=== PATIENT | male | born 1935 | race Caucasian/White ===

== ENCOUNTER 2016-12-05 12:05 | Day surgery (SDC) | payer MEDICARE, OTHER ==
[~2016-12-05] VITALS: Ht 182.9 cm; Wt 75.0 kg
--- NOTE | 2016-12-05 08:37 | PCM.HPANE ---
Patient Data Surgeon Admitting Provider: Attending Provider:Noman Samson MD Primary Care Physician:Gulshan Granger MD Other Provider:Peggy Pereiraingham Anesthesia Reason for Visit Colon Polyp Ht/WT & BMI Body Mass Index Allergies Coded Allergies: Milk Containing Products (Unverified Allergy, Unknown, 11/06/13) aspirin (Verified Allergy, Unknown, AGITATION, ANXIETY, 11/06/13) morphine (Verified Allergy, Unknown, "Winds him up", 07/27/15) Past Anesthesia History Anesthesia History: Denies:: Abnormal Airway, Anesthesia Reactions, Difficult Intubation, Fam Anesthesia Reaction, Fam Malignant Hypertherm, Malignant Hyperthermia Diabetes History Hx Diabetes?: No MRSA MRSA: No Medications Reported Medications Cyanocobalamin/Folic Acid (Vitamin X29-Njfwk Acid Tablet)1 Each Tablet1 Each PO DAILY 07/27/15 Omeprazole Magnesium (Prilosec Otc)20 Mg Tablet.dr20 Mg PO DAILY #1 PKG Ref 0 07/27/15 Hyoscyamine ER 0.375 Mg Tablet0.375 Mg PO BID 07/27/15 Hydrocodone-Acetaminophen 7.5-325 mg 1 Each Tablet1-2 Tablet PO Q6H PRN For Pain Ref 0 07/27/15 Gabapentin 600 Mg [id number] Mg PO 4-5x day Ref 0 07/27/15 Finasteride 5 Mg Tablet5 Mg PO 3X WEEKLY MO, WE, FR 30 Days Ref 0 07/27/15 Multivitamin (Multi Vitamin Daily)1 Each Tablet1 Each PO DAILY 30 Days Ref 0 07/27/15 Discontinued Reported Medications Hydrochlorothiazide 25 Mg [id number] Mg PO DAILY #90 09/03/15 History History of ENT Problems?: Yes HEENT History: Positive for:: Hearing Problem Denies:: Abnormal Airway Difficult Intubation Dysphagia Hx of Heart Problems?: Yes Cardiovascular History: Positive for:: Hypertension Denies:: AICD Atrial Fibrillation Chest Pain Pacemaker Valvular Heart Disease Hx of Respiratory Problem?: No Respiratory History: Denies:: Asthma COPD Cough Hemoptysis Oxygen Administration Pneumonia Tuberculosis Use of C-PAP Machine Hx Neurologic Problems?: No Neurological History: Denies:: CVA Dementia Multiple Sclerosis Parkinson's Disease Seizures Hx of GI Problems?: Yes Gastrointestinal History: Positive for:: Gastroesphageal Reflux (on omeprazole ) Denies:: Cirrhosis Diverticulitis Gastrointestinal Bleeding Rectal Bleeding Hx of Problems?: No Male Hx: Positive for:: Prostate Problems (BPH) Denies:: Scrotal Mass Testicular Surgery Skin History: Denies:: History Skin Disorders? Pressure Ulcers Hx Musculoskeletal Problems?: Yes Musculoskeletal History: Positive for:: Back Injury (hx of lami- spinal stenosis. Chronic back pain radiating to left leg) Musculoskeletal Trauma (current problem right partial rotator cuff tear-) Denies:: Joint Replacement Systemic Lupus Hx of Psycho/Social Problems?: No Psycho Social History: Denies:: Anxiety Hx Depression Hx Surgeries?: Yes (Cataract, lami, rt ing hernia, umb hernia, left rotator cuff, lt ing hernia) Hx Any Other Health Problems?: Yes Other History: Denies:: Cancer Endocrine Disease Thyroid Disease Hx Diabetes: No Hx Alcohol Use: NoHx Substance Use: No Smoking Status: Never Smoker Have You Smoked inLast 12 mo: No Stop/Bang Treated for Sleep Apnea?: No Do You Have a CPAP Machine?: No [place] Category 4 OutPt Procedure: Yes Risk Assessment Category Category 1A: Patient has history of documented sleep apnea, and HAS NOT received any narcotic, sedative or anesthesia administration during this stay. Category 1B: Patient has history of documented sleep apnea, and HAS received any narcotic , sedative or anesthesia administration during this stay Category 2: Patient has SUSPECTED Obstructive Sleep Apnea, and HAS received any narcotic , sedative or anesthesia administration during this stay. Category 3: Patient has SUSPECTED Obstructive Sleep Apnea and HAS NOT received narcotic, sedative or anesthesia administration during this stay. Category 4: Outpatient in Procedural Areas with known sleep apnea or who screen positive for High Risk via the STOP/BANG questionnaire. Exam Exam General Appearance: Alert, Oriented X3, Cooperative, No Acute Distress HEENT/AIRWAY: MP 2 Lungs: Clear to Auscultation, Normal Air Movement Heart: Exam Unremarkable, Regular Rate/Rhythm, No Murmurs/Rubs/Gallops Plan Impression Patient chart reviewed, patient interviewed and anesthestic plan with risks, benefits, and alternatives discussed, and informed consent obtained. NPO Status: 09/02/151999 ASA Physical Status: ASA3 Severe Disease (frail and weakened by the bowel prep) Anesthetic Plan: MAC Bene/Risks/Altern/Consents: Yes HP Complete Prior to Induction: Yes Praveen Reddy MD Dec 05, 2016 08:37
[~2016-12-05 12:05] MED LIST: CYAN1TAB42 PO; FINA5TAB9 PO; GABA600T2 PO; HYDR-3825 PO; HYOS0.3740 PO; Lactated Ringer's 1,000 ML IV ONE; MULT-1018 PO; OMEP20TA24 PO
[2016-12-05] MEDS ORDERED: Ketamine 10 mg/mL 20 mL Inj ONE (12:06)
[2016-12-05] MEDS ORDERED: Propofol 10,000 mCg/mL 20 mL Inj ONE (12:06)
[2016-12-05] MEDS ORDERED: Ondansetron 2 mg/mL 2 mL Inj IVPUSH ONE (12:40)
[2016-12-05 13:00] VITALS: BP 138/83; PULSE 91; RESP 16; O2SAT 93
[2016-12-05] MEDS ORDERED: Lactated Ringer's 1,000 ML IV SCH (14:26)
[2016-12-05 14:27] VITALS: BP 95/61; PULSE 78; RESP 12; O2SAT 91
[2016-12-05] MEDS ORDERED: Ondansetron 2 mg/mL 2 mL Inj IVPUSH PRN (14:30)
[2016-12-05] MEDS ORDERED: MetoCLOpramide 5 mg/mL 2 mL Inj IVPUSH PRN (14:30)
[2016-12-05 14:39] VITALS: BP 101/68; PULSE 76; RESP 12; O2SAT 94
[2016-12-05 15:01] VITALS: BP 145/83; PULSE 72; RESP 16; O2SAT 95
--- NOTE | 2016-12-05 15:32 | PCM.ANEP1 ---
Post Anesthesia Phase 1 PACU Phase 1 Assessment Vital Signs Vital Signs Date Time Temp Pulse Resp B/P Pulse Ox O2 Delivery O2 Flow Rate FiO2 12/05/16 15:01 72 16 145/83 95 Room Air 12/05/16 14:39 76 12 101/68 94 Nasal Cannula 12/05/16 14:27 78 12 95/61 91 Nasal Cannula 2 12/05/16 13:00 37 91 16 138/83 93 Room Air Anesthetic Administered: MAC Level of Alertness: Awake, talking SINGH's with Equal Strength: Yes Pain: No Nausea or Vomiting: No Oxygen Delivery: Nasal Cannula Lungs: Clear to Auscultation, Normal Air Movement Dermatome Level: Full Sensation Praveen Reddy MD Dec 05, 2016 15:32
--- NOTE | 2016-12-05 18:10 | ENDO ---
[address] [address] ENDOSCOPY PROCEDURE PATIENT: VELASQUEZ REYES : 1935 MR#: [id number] ADMIT: 12/05/2016 JOB ID: [id number] PRIMARY PROVIDER: Gulshan Granger MD PROCEDURE: Colonoscopy with cold snare polypectomy and cold forceps polypectomy. INDICATIONS: An 81-year-old male with a personal history of adenomatous colon polyps returning for surveillance. EQUIPMENT: [employer]-H180AL. SEDATION: Monitored anesthesia as provided by Dr. Praveen Reddy. COMPLICATIONS: None identified. PREPARATION QUALITY: Bowel prep poor. PROCEDURE INFORMATION: After the risks and benefits were explained, written and verbal informed consent was obtained. The patient was brought into the endoscopy suite and placed into the left lateral decubitus position. Sedation was achieved as above and a digital rectal examination accomplished. No pathology appreciated apart from some moderate internal and external nonbleeding nonthrombosed hemorrhoids. The scope was introduced into the rectum and advanced to the cecum as identified by the appendiceal orifice and ileocecal valve. The scope was slowly withdrawn to carefully examine the mucosa for any defects or lesions. Multiple direct views were made through the dentate line for exclusion of pathology. The colon was decompressed and the scope removed from the patient, who tolerated the procedure well. FINDINGS: Quite a poor prep in spite of 2 enemas in addition to the attempt at Suprep. There was a lot of retained fibrous and liquid stool debris requiring copious amounts of suction and irrigation. I saw 2 very diminutive polyps in the right colon, removed with cold forceps. A slightly larger polyp was removed with cold snare somewhere around the hepatic flexure. Within the limitations of the bowel prep, no other significant pathology was appreciated throughout. There were several areas that we just did not get fully cleansed. ENDOSCOPIC DIAGNOSES: 1. Hemorrhoids. 2. Colon polyps. 3. Poor prep. RECOMMENDATIONS: 1. Await histopathology. 2. In that the patient has demonstrated such a poor tolerance of bowel prep, I do not believe that it would be appropriate to pursue further surveillance colonoscopy. 3. However, in the meantime I would recommend the patient pursue a regular bowel regimen with dilute ground flaxseed fiber and regular organic sauerkraut to improve evacuation and consistency. If this is not sufficient to get the job done, then I would recommend additionally a daily dose of MiraLAX. 4. Follow up in GI Clinic on a p.r.n. basis.
--- NOTE | 2016-12-06 08:49 | PCM.ANEP2 ---
Post Anesthesia Evaluation ASA/CMS Post Anesthesia VS in Patient's Normal Range?: Yes Resp Stable; Airway Patent?: Yes CV Function & Hydration Stable: Yes Mental Status Recovered?: Yes Pain control Satisfactory?: Yes N/V Control Satisfactory?: Yes Praveen Reddy MD Dec 06, 2016 08:49
--- NOTE | 2016-12-07 15:07 | PATH ---
SURGICAL PATHOLOGY Attending Physician:Kim Moraes CASE STATUS: Signed Out PATIENT NAME: VELASQUEZ REYES PID: [id number] : 1935 DATE COLLECTED:12/05/2016 00:00 SPECIMEN: Colon, Biopsy CLINICAL HISTORY: 1). COLON POLYPS FINAL DIAGNOSIS: 1.COLON, POLYPS, BIOPSIES: TUBULAR ADENOMAS. ICD10 CODE D12.6 GROSS DESCRIPTION: The specimen is received in one formalin filled container labeled with the patient's name, sublabeled "colon polyps" and consists of 2 portions of tissue which aggregate to 0.3 x 0.3 x 0.2 CM. The specimen is entirely submitted in one cassette. 12/06/2016 [facility] MICRO DESCRIPTION: See diagnosis. ICD-9 CODES: CPT CODES: 1: 51472 Electronically Signed Out Agnieszka Schmidt MD [facility] Pathology [facility] [address], [place] [address] Technical component performed at [facility], [facility] [address], [address]
== END 2016-12-05 23:59 | disposition home or self-care (01) ==
LOC: END 12:05
PROVIDERS: ATTEND Internal Medicine Gastroenterology
DX: Z12.11 Encounter for screening for malignant neoplasm of colon (principal); D12.6 Benign neoplasm of colon, unspecified; K64.8 Other hemorrhoids; Z86.010 Personal history of colon polyps; Z79.899 Other long term (current) drug therapy
CPT/HCPCS: 45380; 45385; 88305; J2405; J7120